=== PATIENT | female | born 1940 | race Caucasian/White ===

== ENCOUNTER 2016-08-02 12:30 | Outpatient (RCR) | payer MEDICARE, BC ==
[~2016-08-02 12:30] MED LIST: ACIPHEX20 MG PO; ASPI325T6 PO; CAL-CITRATE PLU1 TAB PO; CALCIUM 600MG+D1 TAB PO; CALCIUM/MAGNESI1 T18 PO; CARDI-OMEGA1000 MG PO; CLARITIN 1010 MG/TAB PO; DEXILANT60 MG PO; FLAX OIL1000 MG PO; FOSAMAX70 MG PO; MASON NATURAL1200 MG PO; MULTI VITAMINS1 TAB PO; OMEPRAZOLE20 MG PO; OMNICEF 300MG300 MG PO; PREDNISONE20 MG PO; QUESTRAN4 GM/9 GM PO; RESTASIS0.05% OU; SINGULAIR 110 MG/TAB PO; VITAMIN D1000 IU PO; VITAMINS; VTAMINC250TA PO; ZYRTEC 10MG10 MG PO
== END 2016-08-03 10:24 | disposition home or self-care (01) ==
LOC: WSPT 12:30
DX: M46.82 Other specified inflammatory spondylopathies, cervical region (principal); M54.12 Radiculopathy, cervical region
CPT/HCPCS: G0283-GP; G8984-GP; G8985-GP; G8986-GP

== ENCOUNTER → 2017-10-01 | Outpatient (CLI) | payer MEDICARE, BC ==
[~2017-10-01] MED LIST changes: +NEXIUM 20MG20 MG PO; +PROTONIX 40MG T40 MG PO
== END ==
LOC: COL.RAD 09:07
DX: Z01.812 Encounter for preprocedural laboratory examination (principal); J90 Pleural effusion, not elsewhere classified; S22.41XA Multiple fractures of ribs, right side, initial encounter for closed fracture; K44.9 Diaphragmatic hernia without obstruction or gangrene; R18.0 Malignant ascites; R19.09 Other intra-abdominal and pelvic swelling, mass and lump; R63.4 Abnormal weight loss
CPT/HCPCS: Q9967

== ENCOUNTER → 2017-10-02 | Outpatient (CLI) | payer MEDICARE, BC ==
[~2017-10-02] VITALS: Ht 154.9 cm; Wt 53.0 kg
[2017-10-02 10:50] VITALS: BP 141/80; PULSE 103
[2017-10-02 11:58] VITALS: BP 147/75; PULSE 86
[2017-10-02 12:15] VITALS: BP 134/69; PULSE 78
== END ==
LOC: COL.RAD 10:30
DX: C79.9 Secondary malignant neoplasm of unspecified site (principal); R18.0 Malignant ascites

== ENCOUNTER 2017-10-11 14:15 | Outpatient (RCR) | payer MEDICARE, BC ==
[2017-10-25] MEDS ORDERED: MOTRIN 600600 MG/TAB PO (14:57)
[2017-10-25] MEDS ORDERED: COMPAZINE 110 MG/TAB PO (15:00)
[2017-10-25] MEDS ORDERED: DECADRON 4MG TAB4 MG PO (15:01)
[2017-10-29] MEDS ORDERED: MOTRIN 600600 MG/TAB PO (12:09)
[2017-11-05] MEDS ORDERED: CLARITIN 1010 MG/TAB PO (14:13)
== END 2017-11-05 16:10 | disposition home or self-care (01) ==
LOC: WSPT 14:15
DX: M47.22 Other spondylosis with radiculopathy, cervical region (principal)
CPT/HCPCS: G8978-GP; G8979-GP; G8980-GP

== ENCOUNTER → 2017-10-16 | Outpatient (CLI) | payer MEDICARE, BC ==
[~2017-10-16] VITALS: Ht 154.9 cm; Wt 50.0 kg
[2017-10-16 12:27] VITALS: BP 156/78; PULSE 104
[2017-10-16 14:45] VITALS: BP 133/57; PULSE 93
== END ==
LOC: COL.RAD 12:08
DX: R18.8 Other ascites (principal); Z85.43 Personal history of malignant neoplasm of ovary

== ENCOUNTER → 2017-10-29 | Outpatient (CLI) | payer MEDICARE, BC ==
[~2017-10-29] VITALS: Ht 154.9 cm; Wt 50.5 kg
[~2017-10-29] MED LIST changes: +COMPAZINE 110 MG/TAB PO; +DECADRON 4MG TAB4 MG PO; +MOTRIN 600600 MG/TAB PO
[2017-10-29 12:13] VITALS: BP 149/75; PULSE 95
[2017-10-29 13:30] VITALS: BP 147/76; PULSE 88
== END ==
LOC: COL.RAD 11:45
DX: C56.9 Malignant neoplasm of unspecified ovary (principal); R18.0 Malignant ascites

== ENCOUNTER → 2017-11-05 | Outpatient (CLI) | payer MEDICARE, BC ==
[~2017-11-05] VITALS: Ht 154.9 cm; Wt 49.0 kg
[2017-11-05 14:17] VITALS: BP 126/73; PULSE 94
[2017-11-05 15:30] VITALS: BP 165/77; PULSE 93
== END ==
LOC: COL.RAD 13:55
DX: R18.0 Malignant ascites (principal)

== ENCOUNTER → 2017-11-12 | Outpatient (CLI) | payer MEDICARE, BC ==
[~2017-11-12] VITALS: Ht 154.9 cm; Wt 47.4 kg
[~2017-11-12] MED LIST changes: +NORCO 325 MG-51 TAB PO; +ZOFRAN ODT8 MG PO
[2017-11-12 13:12] VITALS: BP 140/60; PULSE 97
[2017-11-12 14:10] VITALS: BP 141/72; PULSE 88
== END ==
LOC: COL.RAD 12:45
DX: R18.0 Malignant ascites (principal)

== ENCOUNTER → 2017-11-25 | Outpatient (CLI) | payer MEDICARE, BC ==
[~2017-11-25] VITALS: Ht 154.9 cm; Wt 44.5 kg
[~2017-11-25] MED LIST changes: +MAG-OX 400400 MG/TAB PO
[2017-11-25 12:19] VITALS: BP 132/65; PULSE 93
== END ==
LOC: COL.RAD 11-20 09:00
DX: C56.9 Malignant neoplasm of unspecified ovary (principal); R18.0 Malignant ascites

== ENCOUNTER → 2017-12-03 | Outpatient (CLI) | payer MEDICARE, BC ==
[~2017-12-03] VITALS: Ht 154.9 cm; Wt 44.8 kg
[~2017-12-03] MED LIST changes: +COLACE 100100 MG/CAP PO
[2017-12-03 12:19] VITALS: BP 129/71; PULSE 101
[2017-12-03 13:07] VITALS: BP 139/67; PULSE 95
== END ==
LOC: COL.RAD 11:45
DX: R18.0 Malignant ascites (principal)
CPT/HCPCS: 19804

== ENCOUNTER → 2018-04-01 | Outpatient (CLI) | payer MEDICARE, BC | LOC: MC.RAD 11:39 | DX: Z12.31 Encounter for screening mammogram for malignant neoplasm of breast (principal) ==

== ENCOUNTER 2018-10-14 12:56 | Outpatient (CLI) | payer MEDICARE, BC ==
[~2018-10-14] VITALS: Ht 154.9 cm; Wt 52.0 kg
[2018-10-14 13:23] VITALS: BP 142/58; PULSE 75; TEMP 98
[2018-10-14] MEDS ORDERED: CALCIUM CITRATE1 TA1 PO (13:28)
[2018-10-14] MEDS ORDERED: CALCIUM-MAGNES1 EAC1 PO (13:29)
[2018-10-14] MEDS ORDERED: CENTRUM SILVER1 CTB PO (13:30)
[2018-10-14] MEDS ORDERED: ADVIL PM 38 MG-1 TAB PO (13:31)
[2018-10-14] MEDS ORDERED: ALEVE 220MG220 MG PO (13:32)
[2018-10-14] MEDS ORDERED: VITAMIN B COMPL1 SGL PO (13:33)
[2018-10-14] MEDS ORDERED: ZANTAC 7575 MG PO (13:35)
[2018-10-14] MEDS ORDERED: AVASTIN 100M25 MG/ML PO (13:39)
== END 2018-10-14 14:22 | disposition home or self-care (01) ==
LOC: EUO 12:56
DX: M81.0 Age-related osteoporosis without current pathological fracture (principal)
CPT/HCPCS: J0897

== ENCOUNTER → 2019-04-23 | Outpatient (CLI) | payer MEDICARE, BC ==
[~2019-04-23] MED LIST changes: +ADVIL PM 38 MG-1 TAB PO; +ALEVE 220MG220 MG PO; +AVASTIN 100M25 MG/ML PO; +CALCIUM CITRATE1 TA1 PO; +CALCIUM-MAGNES1 EAC1 PO; +CENTRUM SILVER1 CTB PO; +ESTRACE0.1 MG/GM VG; +STOOL SOFTENER100 M2 PO; +VITAMIN B COMPL1 SGL PO; +ZANTAC 7575 MG PO
== END ==
LOC: COL.VAS 08:34
DX: Z01.818 Encounter for other preprocedural examination (principal); C56.1 Malignant neoplasm of right ovary; I35.1 Nonrheumatic aortic (valve) insufficiency

== ENCOUNTER → 2019-05-29 | Outpatient (CLI) | payer MEDICARE, BC | LOC: MC.RAD 09:45 | DX: Z12.31 Encounter for screening mammogram for malignant neoplasm of breast (principal) ==